=== PATIENT | female | born 1995 | race Hispanic/Latino ===

== ENCOUNTER 2018-01-18 01:31 | Inpatient (IN) | payer OTHER ==
[~2018-01-18] VITALS: Ht 162.6 cm; Wt 79.8 kg
[2018-01-18 02:20] LABS: ABSOLUTE BASOPHIL COUNT 0 /CUMM (0.0-0.2); ABSOLUTE EOSINOPHIL COUNT 0 /CUMM (0.0-0.7); ABSOLUTE GRANULOCYTE CT 10.4 /CUMM (1.4-6.5); ABSOLUTE LYMPH COUNT 2.1 /CUMM (1.2-3.4); ABSOLUTE MONOCYTE COUNT 1.2 /CUMM (0.10-0.60); BASOPHIL % 0.1 % (0.0-2.0); EOSINOPHIL % 0.3 % (0-5); GRANULOCYTE % 75.8 % (42.2-75.2); HEMATOCRIT 32.8 % (37-47); MEAN CORPUSCULAR HGB 28.2 PG (27.0-31.0); MEAN CORPUSCULAR HGB CONC 33.9 G/DL (33.0-37.0); MEAN CORPUSCULAR VOLUME 83.3 FL (81.0-99.0); PLATELET COUNT 375 /CUMM (130-400); RBC DISTRIBUTION WIDTH 14.2 % (11.5-14.5); RED BLOOD CELL CT 3.93 /CUMM (4.20-5.40); WHITE BLOOD CELL COUNT 13.8 /CUMM (4.8-10.8)
--- NOTE | 2018-01-18 05:45 | History & Physical Pre-Op ---
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 The patient is a 22 year old F who presented with a patient stated chief complaint of [pain]. History of Present Illness: 22-year-old 2 para 0 presents to childbirth [id number] gestation complaining of contractions. Patient is 5 cm AROM. Allergies/Medications Allergies: Coded Allergies: morphine (Intermediate, NAUSEA 01/18/18) penicillin G (Intermediate, NAUSEA 01/18/18) Past History Surgical History Pertinent Surgical History: none Past Family/Social History Psychosocial History Smoking Status: Former Smoker Review of Systems Review of Systems: -13 point review of systems Exam & Diagnostic Data Last 24 Hrs of Vital Signs/I&O Vital Signs Date Time Temp Pulse Resp B/P B/P Pulse O2 O2 Flow FiO2 Mean Ox Delivery Rate 01/18 0533 99.8 Intake & Output 01/18 0800 01/18 0000 01/17 1600 Intake Total Output Total Balance Patient 176 lb Weight Physical Exam: 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
--- NOTE | 2018-01-18 07:22 | Labor & Delivery Summary ---
Delivery Summary Vaginal Delivery: Vaginal: vertex Episiotomy/Lacerations: Episiotomy/Lacerations: RMLE Repair: 30 LOCAL NESACAINE Placenta: Placenta: spontanteous, normal, 3 vessel Anesthesia: block Additional Comments: VACUUM ASSISTEDV DELIVERY SECONDARY TO TACHYCARDIA AT +1 SECOND APPLICATION OVER RMLE. MECONIUM AFTER DELIVERY .SPONTANEOUS CRY SUCTIONED WITH BULB. PLACENTA BYCCT INTACT .RMLE REPAIRED WITH 30.PLACENTA CULTURED SECONDARY TO INFANT TEMP.
[2018-01-18 07:43] VITALS: BP 115/56
[2018-01-19 06:43] LABS: ABSOLUTE BASOPHIL COUNT 0 /CUMM (0.0-0.2); ABSOLUTE EOSINOPHIL COUNT 0.2 /CUMM (0.0-0.7); ABSOLUTE GRANULOCYTE CT 16.8 /CUMM (1.4-6.5); ABSOLUTE LYMPH COUNT 3.8 /CUMM (1.2-3.4); ABSOLUTE MONOCYTE COUNT 1.3 /CUMM (0.10-0.60); BASOPHIL % 0.2 % (0.0-2.0); EOSINOPHIL % 0.8 % (0-5); GRANULOCYTE % 75.8 % (42.2-75.2); MEAN CORPUSCULAR HGB 28.6 PG (27.0-31.0); MEAN CORPUSCULAR HGB CONC 33.5 G/DL (33.0-37.0); MEAN CORPUSCULAR VOLUME 85.3 FL (81.0-99.0); MEAN PLATELET VOLUME 7.9 FL (7.4-10.4); PLATELET COUNT 301 /CUMM (130-400); RBC DISTRIBUTION WIDTH 14.4 % (11.5-14.5); RED BLOOD CELL CT 3.22 /CUMM (4.20-5.40)
[2018-01-19 06:46] LABS: HEMATOCRIT 27.5 % (37-47); WHITE BLOOD CELL COUNT 22.1 /CUMM (4.8-10.8)
--- NOTE | 2018-01-19 10:18 | PN- Post Delivery/GYN ---
Subjective Subjective: NO C/O Review of Systems: NEG Objective Last 24 Hrs of Vital Signs/I&O VSS AFEBRILE Physical Exam: ABD SOFT FF EXT NT Assessment/Plan Assessment/Plan S/P PPD 1 STABLE CIRC Problem List: 1.
[2018-01-19] MEDS ORDERED: IBUPROFEN800 M1 PO (10:59)
[2018-01-19] MEDS ORDERED: DOCUSATE SODIU100 M3 PO (10:59)
[2018-01-19 16:26] LABS: ABSOLUTE BASOPHIL COUNT 0 /CUMM (0.0-0.2); ABSOLUTE EOSINOPHIL COUNT 0.2 /CUMM (0.0-0.7); ABSOLUTE GRANULOCYTE CT 16.6 /CUMM (1.4-6.5); ABSOLUTE LYMPH COUNT 3.3 /CUMM (1.2-3.4); ABSOLUTE MONOCYTE COUNT 1.2 /CUMM (0.10-0.60); BASOPHIL % 0.1 % (0.0-2.0); EOSINOPHIL % 0.8 % (0-5); GRANULOCYTE % 77.8 % (42.2-75.2); HEMATOCRIT 28.7 % (37-47); MEAN CORPUSCULAR VOLUME 85.1 FL (81.0-99.0); MEAN PLATELET VOLUME 7.8 FL (7.4-10.4); PLATELET COUNT 350 /CUMM (130-400); RBC DISTRIBUTION WIDTH 14.2 % (11.5-14.5); RED BLOOD CELL CT 3.37 /CUMM (4.20-5.40); WHITE BLOOD CELL COUNT 21.3 /CUMM (4.8-10.8)
[2018-01-20 08:04] LABS: ABSOLUTE BASOPHIL COUNT 0 /CUMM (0.0-0.2); ABSOLUTE EOSINOPHIL COUNT 0.2 /CUMM (0.0-0.7); ABSOLUTE GRANULOCYTE CT 11.2 /CUMM (1.4-6.5); ABSOLUTE MONOCYTE COUNT 0.9 /CUMM (0.10-0.60); BASOPHIL % 0.1 % (0.0-2.0); GRANULOCYTE % 68.7 % (42.2-75.2); HEMATOCRIT 30.5 % (37-47); MEAN CORPUSCULAR HGB 28.3 PG (27.0-31.0); MEAN CORPUSCULAR HGB CONC 33.3 G/DL (33.0-37.0); MEAN PLATELET VOLUME 7.8 FL (7.4-10.4); PLATELET COUNT 357 /CUMM (130-400); RBC DISTRIBUTION WIDTH 14.4 % (11.5-14.5); RED BLOOD CELL CT 3.58 /CUMM (4.20-5.40); WHITE BLOOD CELL COUNT 16.3 /CUMM (4.8-10.8)
== END 2018-01-20 11:00 | DRG 560 ==
LOC: CBCO 01:31 → GNO 01:44
PROVIDERS: Obstetrics & Gynecology; Specialist
PROC: 0W8NXZZ Division of Female Perineum, External Approach (ICD-10-PCS; principal; 2018-01-18)
PROC: 10E0XZZ Delivery of Products of Conception, External Approach (ICD-10-PCS; principal; 2018-01-18)
DX: O76 Abnormality in fetal heart rate and rhythm complicating labor and delivery (principal); Z3A.40 40 weeks gestation of pregnancy; Z37.0 Single live birth
CPT/HCPCS: 87070; GNOS; 36415; 80307; 81001; 84112; 87147; G0463; J0131